=== PATIENT | female | born 2005 | race Caucasian/White ===

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

== ENCOUNTER 2025-01-07 12:53 | Emergency (ER) | payer OTHER ==
[~2025-01-07] VITALS: Ht 175.3 cm; Wt 63.5 kg
[2025-01-07 13:01] VITALS: BP 144/85
[2025-01-07] MEDS ORDERED: Ketorolac Tromethamine 15mg Vial IV ONE ×2 (13:05→16:55)
[2025-01-07 13:27] LABS: BASOPHILS ABSOLUTE AUTO 0.03 K/mm3 (0.00-0.23); BASOPHILS PERCENT AUTO 0 % (0-2); EOSINOPHILS ABSOLUTE AUTO 0.05 K/mm3 (0.00-0.68); EOSINOPHILS PERCENT AUTO 1 % (0-6); Hematocrit 42.2 % (33.0-51.0); Hemoglobin 13.8 g/dL (11.5-16.0); IMMATURE GRAN ABSOLUTE AUTO 0.02 K/mm3 (0.00-0.10); IMMATURE GRAN PERCENT AUTO 0 % (0-1); LYMPHOCYTES ABSOLUTE AUTO 2.31 K/mm3 (0.84-5.20); LYMPHOCYTES PERCENT AUTO 25 % (21-46); MONOCYTES ABSOLUTE AUTO 0.60 K/mm3 (0.16-1.47); MONOCYTES PERCENT AUTO 7 % (4-13); Mean Corpuscular HGB Conc 32.7 g/dL (31.5-36.5); Mean Corpuscular Volume 89 fL (80-100); NEUTROPHILS ABSOLUTE AUTO 6.11 K/mm3 (1.96-9.15); NEUTROPHILS PERCENT AUTO 67 % (41-73); NRBC ABSOLUTE 0.00 K/mm3 (0.00-0.02); NRBC Auto 0.0 /100 WBC (0.0-0.2); Platelet Count 353 K/mm3 (150-400); RDW Coefficient Variation 13.1 % (11.7-14.2); RDW Standard Deviation 42.7 fL (35.1-46.3)
[2025-01-07] MEDS ORDERED: Ondansetron HCl 2 MG / ML 2ML Vial IV ONE (13:35)
[2025-01-07 13:50] LABS: Alanine Aminotransfer (ALT/SGP 17.0 U/L (12-78); Albumin, Blood 4.3 g/dL (3.4-5.0); Albumin/Globulin Ratio 1.3 (0.8-1.8); Anion Gap 6.0 mmol/L (3-11); Aspartate Aminotrans (AST/SGOT 11.0 U/L (12-37); Bilirubin, Total 0.8 mg/dL (0.1-1.0); Blood Urea Nitrogen 8.0 mg/dL (8-21); CO2, Blood 28.0 mmol/L (21-32); Calcium, Blood 9.0 mg/dL (8.5-10.1); Chloride, Blood 108.0 mmol/L (98-108); Creatinine, Blood 0.74 mg/dL (0.40-1.00); Globulin, Blood 3.4 g/dL (2.2-4.0); Glucose, Blood 89.0 mg/dL (70-99); Potassium, Blood 3.8 mmol/L (3.5-5.5); Sodium, Blood 138.0 mmol/L (136-145); Total Protein, Blood 7.7 g/dL (6.4-8.2)
[2025-01-07 15:54] LABS: Source, Urine Clean Catch
[2025-01-07 16:11] LABS: Bilirubin, Urine Neg (Neg); Color, Urine Yellow (P-Yellow); Glucose Qualitative, Urine Neg (Neg); Ketones, Urine 4+ (Neg); Leukocyte Esterase, Urine 1+ (Neg); Protein, Urine 2+ (Neg); Specific Gravity, Urine 1.025 (1.003-1.022); Urobilinogen, Urine NORM (Normal)
[2025-01-07 16:13] LABS: Red Blood Cells, Urine 0-2 /hpf (0-2)
== END 2025-01-07 17:13 | disposition home or self-care (01) ==
LOC: ER 12:53
PROVIDERS: Physician Assistant
DX: N83.201 Unspecified ovarian cyst, right side (principal); Z59.89 Other problems related to housing and economic circumstances
CPT/HCPCS: 74177; 76856; 80053; 81001; 84703; 85025; 87086; 96374; 96375; 96376; 99284-25; J1885; J2405; Q9967

== ENCOUNTER 2025-02-01 18:08 | Emergency (ER) | payer OTHER ==
[~2025-02-01] VITALS: Ht 175.3 cm; Wt 63.5 kg
[2025-02-01 18:36] VITALS: BP 142/79
[2025-02-01 19:45] LABS: Source, Urine Clean Catch
[2025-02-01 20:00] LABS: Bilirubin, Urine Neg (Neg); Color, Urine Yellow (P-Yellow); Glucose Qualitative, Urine Neg (Neg); Ketones, Urine Neg (Neg); Leukocyte Esterase, Urine 3+ (Neg); Protein, Urine Neg (Neg); Specific Gravity, Urine 1.020 (1.003-1.022); Urobilinogen, Urine NORM (Normal)
[2025-02-01 20:18] LABS: Red Blood Cells, Urine Not Seen /hpf (0-2)
[2025-02-01] MEDS ORDERED: CEPH500 PO (20:46)
[2025-02-02] MEDS ORDERED: CEPH500 PO (14:35)
== END 2025-02-01 21:01 | disposition home or self-care (01) ==
LOC: ER 18:08
PROVIDERS: Student in an Organized Health Care Education/Training Program
DX: N39.0 Urinary tract infection, site not specified (principal)
CPT/HCPCS: 81001; 87086; 99282; A9270

== ENCOUNTER 2025-04-11 21:48 | Emergency (ER) | payer OTHER ==
[~2025-04-11] VITALS: Ht 175.3 cm; Wt 63.5 kg
[~2025-04-11 21:48] MED LIST: CEPH500 PO
[2025-04-11 22:59] VITALS: BP 143/97
== END 2025-04-11 23:05 | disposition home or self-care (01) ==
LOC: ER 21:48
DX: L72.0 Epidermal cyst (principal)
CPT/HCPCS: 99282

== ENCOUNTER 2025-05-11 11:46 | Emergency (ER) | payer OTHER ==
[~2025-05-11] VITALS: Ht 175.3 cm; Wt 63.5 kg
[2025-05-11 11:59] VITALS: BP 125/69
== END 2025-05-11 12:56 | disposition home or self-care (01) ==
LOC: ER 11:46
DX: S62.396A Other fracture of fifth metacarpal bone, right hand, initial encounter for closed fracture (principal); W22.8XXA Striking against or struck by other objects, initial encounter
CPT/HCPCS: 29125; 73130; 99283-25

== ENCOUNTER 2025-05-19 23:23 | Emergency (ER) | payer OTHER ==
[~2025-05-19] VITALS: Ht 175.3 cm; Wt 63.5 kg
[2025-05-19 23:51] VITALS: BP 109/58
== END 2025-05-20 00:06 | disposition home or self-care (01) ==
LOC: ER 23:23
DX: R21 Rash and other nonspecific skin eruption (principal); Z79.2 Long term (current) use of antibiotics
CPT/HCPCS: 99282